=== PATIENT | male | born 2000 | race Caucasian/White ===

== ENCOUNTER 2020-12-02 15:59 | Emergency (ER) | payer SELFPAY ==
--- NOTE | ~2020-12-02 | XR_ITS ---
EXAMINATION: XR clavicle LT DATE: 12/02/2020 16:37 INDICATION: Left clavicular pain post fall TECHNIQUE: AP and 10 degree cephalad angled AP views of the left clavicle were obtained. COMPARISON: none FINDINGS: Nondisplaced fracture at the mid left clavicle with 20 degrees apex cephalad angulation. Normal align ment at the left glenohumeral and acromioclavicular joints. No other fractures identified. Visualized portions of the upper lungs are clear. IMPRESSION: 1. 20 degrees apex cephalad angulation of a nondisplaced mid left clavicle fracture. Reviewed, dictated and finalized at location B. IMPRESSION: 1. 20 degrees apex cephalad angulation of a nondisplaced mid left clavicle [place].
[2020-12-02 16:17] VITALS: BP 116/55; PULSE 62; RESP 18; TEMP 36.9; O2SAT 100
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
== END 2020-12-02 17:10 | disposition home or self-care (01) ==
PROVIDERS: Emergency Provider Nurse Practitioner
DX: S42.025A Nondisplaced fracture of shaft of left clavicle, initial encounter for closed fracture (principal); V29.9XXA Motorcycle rider (driver) (passenger) injured in unspecified traffic accident, initial encounter
CPT/HCPCS: 73000; 99213; G0463